=== PATIENT | female | born 1985 | race Two or more races ===

== ENCOUNTER 2023-12-23 13:19 | Outpatient (CLI) | payer OTHER | END 2023-12-23 13:20 | disposition critical access hospital (66) | LOC: EMS 13:19 | DX: R56.9 Unspecified convulsions (principal); R11.10 Vomiting, unspecified | CPT/HCPCS: A0425; A0429 ==

== ENCOUNTER 2023-12-23 13:37 | Emergency (ER) | payer OTHER ==
--- NOTE | 2023-12-23 13:52 | ED Physician Documentation ---
PD HPI SYNCOPE - Stated complaint Stated Complaint: SZ - Chief complaint Chief Complaint: Neuro - History obtained from History obtained from: Patient, EMS - History of Present Illness Witnessed: Witnessed - Additional information Additional information: Patient is a 38-year-old female with no significant past medical history presenting for evaluation of a syncopal episode. Patient reports sitting down at the [employer] teachers lounge and was drinking a caffeinated drink. She suddenly felt nauseous and wanted to get to the bathroom before she threw up in front of other staff members. She reports remembering standing up and feeling lightheaded and then reportedly had a syncopal episode. Per EMS there were bystanders around that noted that she had "seizure activity" But EMS did not try to get any further details as to what they meant by this. She had brief LOC and there was no postictal period Per EMS. Patient denies a history of seizures. She does recall feeling lightheaded prior to the event. There was no head injury per EMS. Patient does not take a blood thinner. She denies concerns for . Patient states that her children at home have also recently been ill with nausea vomiting symptoms. Review of Systems Constitutional: denies: Fever Cardiac: denies: Chest pain / pressure Respiratory: denies: Dyspnea GI: reports: Nausea. denies: Abdominal Pain : denies: Dysuria Musculoskeletal: denies: Extremity pain Neurologic: reports: Syncope. denies: Head injury PD PAST MEDICAL HISTORY - Past Medical History Past Medical History: No - Past Surgical History Past Surgical History: No - Present Medications Home Medications: Ambulatory Orders Medication Instructions Recorded Confirmed No Known Home Medications 12/23/23 12/23/23 - Allergies Allergies/Adverse Reactions: Allergies Allergy/AdvReac Type Severity Reaction Status Date / Time peanut Allergy Anaphylaxis Verified 12/23/23 13:48 - Social History Does the pt smoke?: No Smoking Status: Never smoker PD ED PE NORMAL - General General: Alert and oriented X 3, No acute distress, Well developed/nourished - HEENT HEENT: Atraumatic, PERRL, EOMI, Moist mucous membranes, Pharynx benign - Neck Neck: Supple, no meningeal sign, No bony TTP - Cardiac Cardiac: RRR, No murmur, Strong equal pulses - Respiratory Respiratory: No respiratory distress, Clear bilaterally - Abdomen Abdomen: Normal bowel sounds, Soft, Non tender, Non distended - Derm Derm: Warm and dry - Extremities Extremities: No deformity, No edema, No calf tenderness / cord - Neuro Neuro: Alert and oriented X 3, petrophysical engineer 2-12 intact, No motor deficit, No sensory deficit, Normal speech Eye Opening: Spontaneous Motor: Obeys Commands Verbal: Oriented GCS Score: 15 Results - Vitals Vitals: Vital Signs - 24 hr 12/23/23 12/23/23 12/23/23 13:44 15:15 15:38 Temperature 36.6 C 36.5 C Heart Rate 95 105 H 113 H Respiratory 18 17 14 Rate Blood Pressure 90/67 126/81 H 123/83 H O2 Saturation 100 100 100 12/23/23 16:35 Temperature 37.4 C Heart Rate 112 H Respiratory 16 Rate Blood Pressure 114/85 H O2 Saturation 100 Oxygen O2 Source Room air - EKG (time done) 1413 EKG releavant findings:: EKG personally interpreted by author of this note. Relevant findings are: Rate 85, normal sinus rhythm, motion artifact, no STEMI 1550 EKG releavant findings:: EKG personally interpreted by author of this note. Relevant findings are: Rate 109, sinus tachycardia, no STEMI, QTc 458 - Labs Labs: Laboratory Tests 12/23/23 12/23/23 12/23/23 13:56 13:56 13:56 WBC 18.8 H RBC 4.95 Hgb 13.2 Hct 41.0 MCV 82.8 MCH 26.7 L MCHC 32.2 RDW 12.9 Plt Count 434 MPV 10.1 Neut # (Auto) 15.9 H Lymph # (Auto) 1.9 [place] # (Auto) 0.7 Eos # (Auto) 0.1 Baso # (Auto) 0.1 Absolute Nucleated RBC 0.00 Nucleated RBC % 0.0 Sodium 137 Potassium 3.3 L Chloride 102 Carbon Dioxide 24 Anion Gap 11.0 BUN 21 H Creatinine 0.7 Estimated GFR (MDRD) 93 Glucose 131 H Lactic Acid 2.0 Calcium 9.2 Magnesium Total Bilirubin 1.0 AST 21 ALT 16 Alkaline Phosphatase 62 Troponin I High Sens 2.3 Total Protein 7.7 Albumin 4.3 Globulin 3.4 Albumin/Globulin Ratio 1.3 Lipase 13 Urine Color Urine Clarity Urine pH Ur Specific [place] Urine Protein Urine Glucose (UA) Urine Ketones Urine Occult Blood Urine Nitrite Urine Bilirubin Urine Urobilinogen Ur Leukocyte Esterase Ur Microscopic Review Urine Culture Comments Urine HCG, Qual 12/23/23 12/23/23 13:56 15:30 WBC RBC Hgb Hct MCV MCH MCHC RDW Plt Count MPV Neut # (Auto) Lymph # (Auto) [place] # (Auto) Eos # (Auto) Baso # (Auto) Absolute Nucleated RBC Nucleated RBC % Sodium Potassium Chloride Carbon Dioxide Anion Gap BUN Creatinine Estimated GFR (MDRD) Glucose Lactic Acid Calcium Magnesium 1.6 L Total Bilirubin AST ALT Alkaline Phosphatase Troponin I High Sens Total Protein Albumin Globulin Albumin/Globulin Ratio Lipase Urine Color YELLOW Urine Clarity CLEAR Urine pH 6.0 Ur Specific [place] 1.010 Urine Protein NEGATIVE Urine Glucose (UA) NEGATIVE Urine Ketones NEGATIVE Urine Occult Blood NEGATIVE Urine Nitrite NEGATIVE Urine Bilirubin NEGATIVE Urine Urobilinogen 0.2 (NORMAL) Ur Leukocyte Esterase NEGATIVE Ur Microscopic Review NOT INDICATED Urine Culture Comments NOT INDICATED Urine HCG, Qual NEGATIVE PD Medical Decision Making - ED course Complexity details: reviewed results, re-evaluated patient, d/w patient ED course: Patient is a 38-year-old presenting for evaluation of a syncopal episode in the setting of feeling nauseous and getting up quickly to get to the bathroom to vomit. Per EMS they stated that bystanders noted open "seizure-like activity and "but they were not able to describe this further and she did not bite her tongue, low have incontinence or have any postictal period thus I do not feel this was true seizure activity. Her neuroexam is normal. She has no complaints here. Her abdominal exam is benign. CBC and chemistries were obtained and reviewed. Leukocytosis of 18,000 - Abdominal exam is benign, no signs of infection on chest x-ray or urine. Patient is not . EKG demonstrates a sinus rhythm. Mildly low potassium and magnesium which were replaced. She is feeling better here after IV fluids and has been ambulating to the bathroom. Her heart rate has increased slightly but patient reports that she is uncomfortable about being here and having the IV in place and she would just like to go home. Patient understands importance of close follow-up with primary care provider as well as concerning symptoms to return for. Departure - Departure Disposition: 01 Home, Self Care Clinical Impression: Syncope Condition: Stable Instructions: ED Fainting Unkn Cause Comments: You were evaluated after a fainting spell. Your labs showed that your white co unt was slightly elevated and your potassium and magnesium were slightly low. You were given replacements for the magnesium and potassium. The white count could be elevated in the setting of an infection which you could be coming down with given your symptoms of nausea and vomiting. Your chest x-ray is clear and your urine does not show infection.I would recommend close follow-up with your primary care provider. I would recommend staying hydrated. If you develop any new or recurrent symptoms please return to the emergency department. Forms: PCP List, Activity restrictions Discharge Date/Time: 12/23/23 16:46
[2023-12-23 13:53] VITALS: O2SAT 100
[2023-12-23 14:04] LABS: BASOPHILS # (AUTO) 0.1 10^3/uL (0.0-0.1); BASOPHILS % (AUTO) 0.3 %; EOSINOPHILS # (AUTO) 0.1 10^3/uL (0.0-0.7); EOSINOPHILS % (AUTO) 0.4 %; HGB - HEMOGLOBIN 13.2 g/dL (12.0-16.0); LYMPHOCYTES # (AUTO) 1.9 10^3/uL (1.5-3.5); LYMPHOCYTES % (AUTO) 10.3 %; MEAN CORPUSCULAR HEMOGLOBIN 26.7 pg (27.0-31.0); MEAN CORPUSCULAR HGB CONC 32.2 g/dL (32.0-36.0); MEAN CORPUSCULAR VOLUME 82.8 fL (81.0-99.0); MEAN PLATELET VOLUME 10.1 fL (7.9-10.8); MONOCYTES # (AUTO) 0.7 10^3/uL (0.0-1.0); MONOCYTES % (AUTO) 3.9 %; NEUTROPHILS # (AUTO) 15.9 10^3/uL (1.5-6.6); NEUTROPHILS % (AUTO) 84.8 %; PLT - PLATELET COUNT 434 10^3/uL (130-450); RED BLOOD COUNT 4.95 10^6/uL (4.20-5.40); RED CELL DISTRIBUTION WIDTH 12.9 % (12.0-15.0); WHITE BLOOD COUNT 18.8 x10^3/uL (4.8-10.8)
[2023-12-23] MEDS: SODIUM CHLORIDE 0.9% 1,000 ML IV STA (14:12)
[2023-12-23 14:25] LABS: ALBUMIN 4.3 g/dL (3.2-5.5); ALBUMIN/GLOBULIN RATIO 1.3 (1.0-2.2); CALCIUM 9.2 mg/dL (8.5-10.3); CREATININE 0.7 mg/dL (0.6-1.3); POTASSIUM 3.3 mmol/L (3.5-4.5); TOTAL PROTEIN 7.7 g/dL (6.4-8.9); TROPONIN I HIGH SENSITIVITY 2.3 ng/L (2.3-14.8)
[2023-12-23] MEDS: POTASSIUM BICARB 25 MEQ TABLET PO ONE (15:03)
--- NOTE | 2023-12-23 15:26 | XRAY Report ---
PROCEDURE: Chest 1V INDICATIONS: syncope TECHNIQUE: One view of the chest was acquired. COMPARISON: None. FINDINGS: Surgical changes and devices: None. Lungs and pleura: No pleural effusions or pneumothorax. Lungs are clear. Mediastinum: Mediastinal contours appear normal. Heart size is normal. Bones and chest wall: No suspicious bony lesions. Overlying soft tissues appear unremarkable. IMPRESSION: No acute cardiopulmonary process. Reviewed by: Adán Lam MD on 12/23/2023 3:25 PM PST Approved by: Adán Lam MD on 12/23/2023 3:25 PM PST Station ID: [id number]
[2023-12-23] MEDS: MAGNESIUM SULFATE 2 GRAM 2 GM/50 ML BAG IV ONE (15:35)
[2023-12-23 15:38] LABS: BILIRUBIN,URINE NEGATIVE (NEGATIVE); GLUCOSE, URINE (UA) NEGATIVE (NEGATIVE); KETONES,URINE (UA) NEGATIVE (NEGATIVE); LEUKOCYTE ESTERASE, URINE NEGATIVE (NEGATIVE); NITRITE,URINE NEGATIVE (NEGATIVE); OCCULT BLOOD,URINE NEGATIVE (NEGATIVE); PROTEIN,URINE NEGATIVE (NEGATIVE); UROBILINOGEN,URINE 0.2 (NORMAL) E.U./dL (NORMAL)
[2023-12-23 15:44] LABS: CLARITY,URINE CLEAR (CLEAR); HCG UR QUAL NEGATIVE
[2023-12-23 16:45] VITALS: BP 114/85
== END 2023-12-23 16:46 | disposition home or self-care (01) ==
LOC: ED 13:37
DX: R55 Syncope and collapse (principal)
CPT/HCPCS: 36415; 71045; 80053; 81003; 81025; 83605; 83690; 83735; 84484; 85025; 93005; 96365; 99284; A9270; 81001; 87086